=== PATIENT | female | born 1960 | race Caucasian/White ===

== ENCOUNTER 2017-08-31 10:28 | Inpatient (IN) | payer BC, OTHER ==
[~2017-08-31] VITALS: Ht 158.8 cm; Wt 38.6 kg
[2017-08-31] MEDS ORDERED: ATOR20TA PO (15:40)
[2017-08-31] MEDS ORDERED: ASPI-1169 PO (15:40)
[2017-08-31] MEDS ORDERED: FOLI1TAB16 PO (15:40)
[2017-08-31] MEDS ORDERED: DIVA500T7 PO (15:40)
[2017-08-31] MEDS ORDERED: DIVA250T4 PO (15:40)
[2017-08-31] MEDS ORDERED: CITA10TA9 PO (15:40)
[2017-08-31] MEDS ORDERED: HALO1TAB PO (15:40)
[2017-08-31] MEDS ORDERED: PANT40TA4 PO (15:40)
[2017-08-31] MEDS ORDERED: LISI-603 PO (15:40)
--- NOTE | 2017-08-31 15:45 | NUR ---
PRE-ASSESSMENT: Pre-Assessment done at intake office, client is A/O to name, place and situation,s he presents with flat affect, anxious mood. T 98, RR 18, BP 114/64, HR 71, spO2 @ 100% on RA, Pain 0/10. She has unsteady gait, soft, delayed speech, she avoids eye contact. She reports allergies dilaudid. She denies any withdrawal-induced seizure. PMH: insomnia, bipolar d/o, panic attacks, pancreatitis, gastric ulcer, anxiety, HtN Medications taken at home Depakote 250mg PO am and 500mg PO HS Lisinopril 20mg daily Atorvastatin 20mg PO HS Aspirin 81mg PO daily Folic acid 1mg daily Pantoprazole 40mg PO daily Inderal 10mg PO prn TID Trazodone 50mg PO prn qhs Zofran 4mg SL prn Q6H Haloperidol 1mg PO BID Substance history alcohol 500mL PO daily for the past two years. longest period of sobriety 48 hours.
[2017-08-31 16:00] VITALS: BP 114/64
--- NOTE | 2017-08-31 16:00 | NUR ---
Admissions Note 57 year old female admitted to [facility] for withdrawal from alcohol. Client reports PMH of insomnia, bipolar d/o, panic attacks, pancreatitis, gastric ulcer, anxiety, HtN. Client is oriented to unit, educated about protocols and how to work TV and call light in her room. Client is on a 1:1 for safety d/t unsteady gait. Weight: 85 pounds. Height: 5'2.5" CIWA: 4 Client appears anxious, flat affect. Bilateral lung clear on auscultation, abdomen soft, non-tender, no edema noted. Clients voice is soft, delayed, she avoids eye contact. Client has Allergies for Dilaudid. Regular diet ordered. Full code status ordered. Client denies any history of seizures. LBM was 08/31/17, small/brown/soft. Clients PCP Connie Rey, She gives verbal consent for PNA and Influenza vaccine. She gives verbal consent for HIV. Client states that she lives with her fianc and his family. Client substance use is as follow, she first started consuming alcohol 20 years ago, for the last 2 days she has been consuming 500mL of Vodka PO DAILY, last time used 08/28/17 @ 2300 She reports no prior treatments. Her longest period of sobriety is for 48 hrs about two months ago. Dr Randle notified of client admission.. Urine was collected upon admission. All safety measures instituted. [place]ill precaution. Call light within reach. Will continue to monitor.
[2017-08-31] MEDS ORDERED: ONDA4TAB8 PO (17:08)
[2017-08-31] MEDS ORDERED: CITA10TA17 GT (17:08)
[2017-08-31] MEDS ORDERED: PROP40TA7 PO (17:08)
[2017-08-31] MEDS ORDERED: ONDANSETRON ODT 4 MG TAB.RAPDIS SL PRN (17:30)
[2017-08-31] MEDS ORDERED: MAG HYDROX/AL HYDROX/SIMETH 30 ML LIQUID UDC PO PRN (17:30)
[2017-08-31] MEDS ORDERED: LOPERAMIDE HCL 2 MG CAPSULE PO PRN ×2 (17:30)
[2017-08-31] MEDS ORDERED: MAGNESIUM HYDROXIDE 30 ML LIQUID UDC PO PRN (17:30)
[2017-08-31] MEDS ORDERED: LORAZEPAM 1 MG TABLET PO PRN ×2 (17:30)
[2017-08-31] MEDS ORDERED: THIAMINE HCL 200 MG/2 ML VIAL IM ONE (17:30)
[2017-08-31] MEDS ORDERED: LORAZEPAM 2 MG/1 ML VIAL IM PRN (17:30)
[2017-08-31] MEDS ORDERED: MIRALAX 17 GM POWD.PACK PO PRN (17:30)
[2017-08-31] MEDS ORDERED: ONDANSETRON 4 MG/2 ML VIAL IM PRN (17:30)
[2017-08-31] MEDS ORDERED: CLONIDINE HCL 0.1 MG TABLET PO PRN (17:30)
[2017-08-31] MEDS ORDERED: ACETAMINOPHEN 325 MG TABLET PO PRN (17:30)
[2017-08-31] MEDS ORDERED: IBUPROFEN 400 MG TABLET PO PRN (17:30)
[2017-08-31] MEDS ORDERED: DICYCLOMINE HCL 20 MG TABLET PO PRN (17:30)
[2017-08-31] MEDS ORDERED: diphenhydrAMINE 50 MG CAPSULE PO PRN (17:30)
[2017-08-31 17:41] LABS: *URINE HCG, QUAL NEGATIVE (NEGATIVE)
[2017-08-31 17:56] LABS: *AMPHETAMINE, URINE NEGATIVE (NEGATIVE); *BARBITURATE, URINE POSITIVE (NEGATIVE); *CANNABINOID, URINE NEGATIVE (NEGATIVE); *COCCAINE, URINE NEGATIVE (NEGATIVE); *OPIATE, URINE NEGATIVE (NEGATIVE); *PHENCYCLIDINE SCREEN,URINE NEGATIVE (NEGATIVE)
[2017-08-31] MEDS ORDERED: LORAZEPAM 1 MG TABLET PO ONE (18:00)
--- NOTE | 2017-08-31 18:10 | NUR ---
Vitamin B1 Inj IM administered to R buttock, client tolerated well.
--- NOTE | 2017-08-31 19:15 | NUR ---
END OF SHIFT Client is a 57 y/o female, admitted to [facility] for withdrawal from alcohol. She has Lorazepam 1 mg PO q2h PRN CIWA 8-14, Lorazepam 2 mg PO q2h PRN CIWA 15+ and notify MD available for management for withdrawal symptoms. Last CIWA 4 @ 1600. Client is on a 1:1 sitter for safety d/t unsteady gait. She denies a hx of withdrawal-induced seizures, Client reports allergy to Dilaudid, she is full code, regular diet. Side rails x 2 up/padded for seizure precautions. Call light within reach.
--- NOTE | 2017-08-31 19:30 | NUR ---
START OF SHIFT Client is a 57 y/o female, admitted to [facility] for withdrawal from alcohol. She has Lorazepam 1 mg PO q2h PRN CIWA 8-14, Lorazepam 2 mg PO q2h PRN CIWA 15+ and notify MD available for management for withdrawal symptoms. Last CIWA 4 @ 1600. Client is on a 1:1 sitter for safety d/t unsteady gait. She denies a hx of withdrawal-induced seizures, Client reports allergy to Dilaudid, she is full code, regular diet. Side rails x 2 up/padded for seizure precautions. Call light within reach. Addendum: 08/31/17 at 6175 by ISIDRO GREENE RN ERROR
--- NOTE | 2017-08-31 19:45 | NUR ---
START OF SHIFT PT IS 57 Y/O FEMALE ADMITTED FOR ETOH DEPENDENCY.PT IS A/O X 2,HAS BEEN PLACED ON 1:1 CLOSE OBSERVATION WITH A FEMALE STAFF FOR UNSTEADY GAIT.BREATHING IS EVEN AND NON LABORED,SKIN IS INTACT,WARM AND DRY TO TOUCH.NO HX OF SEIZURES NOTED.LAST CIWA WAS 4.NO C/O PAIN OR S/S OF ACUTE DISTRESS NOTED.ALL SAFETY MEASURES IN PLACE PER HOSPITAL POLICY,SITTER IS AT BEDSIDE.WILL CONTINUE TO MONITOR FOR SAFETY.
[2017-08-31 19:46] LABS: ALANINE AMINOTRANSFERASE 62 U/L (14-59); ALKALINE PHOSPHATASE 137 U/L (50-136); AMYLASE 160 U/L (25-115); ASPARTATE AMINOTRANSFERASE 77 U/L (15-37); BILIRUBIN,TOTAL 0.2 mg/dL (0.2-1.0); CARBON DIOXIDE 29 mmol/L (21-32); CHLORIDE 100 mmol/L (98-107); CREATININE 0.8 mg/dL (0.6-1.3); GLUCOSE 126 mg/dL (74-106); MAGNESIUM 1.5 mg/dL (1.8-2.4); POTASSIUM 3.6 mmol/L (3.5-5.1); TOTAL PROTEIN, SERUM 8.2 g/dL (6.4-8.2); UREA NITROGEN, BLOOD 7 mg/dL (7-18)
[2017-08-31 19:54] LABS: BASOPHILS # (AUTO) 0.1 K/uL (0.0-8.0); BASOPHILS % (AUTO) 1.4 % (0.0-2.0); EOSINOPHILS # (AUTO) 0.2 K/uL (0.0-0.7); HEMATOCRIT 32.6 % (37-47); HEMOGLOBIN 10.7 G/DL (12.0-16.0); LYMPHOCYTES # (AUTO) 1.4 K/UL (0.8-4.8); LYMPHOCYTES % (AUTO) 25.1 % (20.5-51.5); MEAN CORPUSCULAR HEMOGLOBIN 35.8 UUG (27.0-31.0); MEAN CORPUSCULAR HGB CONC 33 g/dL (32.0-37.0); MEAN CORPUSCULAR VOLUME 109.5 FL (81.0-99.0); MONOCYTES # (AUTO) 0.9 K/UL (0.1-1.30); MONOCYTES % (AUTO) 16.7 % (0.0-11.0); NEUTROPHILS # (AUTO) 2.9 K/UL (1.8-8.9); NEUTROPHILS % (AUTO) 52.8 % (38.5-71.5); PLATELET COUNT (AUTO) 539 K/UL (150-450); RED BLOOD CELL COUNT(AUTO) 2.98 MIL/UL (4.2-5.4); WHITE BLOOD COUNT (AUTO) 5.5 K/UL (4.0-11.2)
[2017-08-31 20:00] VITALS: BP 140/82
[2017-08-31 20:08] LABS: ETHANOL < 3 MG/DL (0-0)
[2017-08-31] MEDS: ATORVASTATIN 20 MG PO SCH (20:42)
[2017-08-31 20:49] LABS: NEUTROPHILS % (MANUAL) 51 % (42-75)
[2017-08-31 20:50] LABS: BAND % (MANUAL) 7 % (0-10); EOSINOPHILS % (MANUAL) 3 % (0-8); LYMPHOCYTES % (MANUAL) 24 % (20-40); MONOCYTES % (MANUAL) 15 % (2-10)
--- NOTE | 2017-08-31 20:50 | NUR ---
LOW LEVEL OF MAGNESIUM REPLACED PER ORDER.
[2017-08-31] MEDS ORDERED: MAGNESIUM OXIDE 400 MG TABLET PO ONE (21:00)
[2017-08-31] MEDS ORDERED: LORAZEPAM 1 MG TABLET PO SCH (21:00)
[2017-08-31] MEDS: DIVALPROEX 500 MG TABLET.DR PO SCH (21:24)
[2017-08-31] MEDS: HALOPERIDOL 1 MG TABLET PO SCH (21:24)
[2017-09-01] VITALS: BP 143/79
[2017-09-01 04:00] VITALS: BP 138/73
--- NOTE | 2017-09-01 06:36 | NUR ---
END OF SHIFT PT IS 57 Y/O FEMALE ADMITTED FOR ETOH DEPENDENCY.PT IS A/O X 2, REMAINS ON 1:1 CLOSE OBSERVATION WITH A FEMALE STAFF FOR UNSTEADY GAIT. BREATHING IS EVEN AND NON LABORED, SKIN IS INTACT, WARM AND DRY TO TOUCH. NO HX OF SEIZURES NOTED. PT IS MED COMPLIANT.LAST CIWA WAS 2.NO C/O PAIN OR S/S OF ACUTE DISTRESS NOTED. NO PRN MEDS GIVEN. PT SLEPT 7 HRS,FLUID INTAKE WAS 1008 MLS,VOIDED X 5, STOOL X 1. ALL SAFETY MEASURES IN PLACE PER HOSPITAL POLICY, SITTER IS AT BEDSIDE. WILL CONTINUE TO MONITOR FOR SAFETY.
--- NOTE | 2017-09-01 07:45 | NUR ---
START OF SHIFT Client is a 57 y/o female, admitted to [facility] for withdrawal from alcohol . She is on a modified 2 day Ativan taper, tolerating well. Last CIWA 2 @ 0200. Client is on a 1:1 for unsteady gait. Client had an uneventful night. Client slept 7 hrs. She denies a hx of withdrawal-induced seizures, Client reports NKA, she is full code, regular diet. Side rails x 2 up/padded for seizure precautions. Call light within reach.
[2017-09-01 08:55] VITALS: BP 109/68
[2017-09-01] MEDS ORDERED: TUBERCULIN,PURIF.PROT.DERIV. 5 TU/0.1 ML TEST ID ONE (09:00)
[2017-09-01] MEDS: MULTIVITAMINS,THERAPEUTIC TABLET PO SCH (09:30)
[2017-09-01] MEDS: THIAMINE HCL 100 MG TABLET PO SCH (09:30)
[2017-09-01] MEDS: DIVALPROEX 250 MG TABLET.DR PO SCH (09:31)
[2017-09-01] MEDS: LISINOPRIL 20MG PO SCH (09:31)
[2017-09-01] MEDS: LORAZEPAM 1 MG TABLET PO SCH ×3 (09:31→20:40)
[2017-09-01] MEDS: ASPIRIN 81 MG PO SCH (09:31)
[2017-09-01] MEDS: PANTOPRAZOLE 40MG PO SCH (09:31)
[2017-09-01] MEDS: HALOPERIDOL 1 MG TABLET PO SCH ×2 (09:31→17:42)
--- NOTE | 2017-09-01 09:32 | NUR ---
TB test administered to L forearm, client tolerated well.
[2017-09-01] MEDS: FOLIC ACID 1 MG TABLET PO SCH (09:42)
[2017-09-01] MEDS ORDERED: DIVALPROEX 250 MG TABLET.DR PO SCH (12:30)
[2017-09-01] MEDS ORDERED: HALOPERIDOL 1 MG TABLET PO SCH (12:30)
[2017-09-01 12:55] VITALS: BP 112/70
--- NOTE | 2017-09-01 13:00 | NUR ---
PT evaluated client, and stated "Client is unsteady." PT recommends 1:1 as safety measures to prevent a fall."
[2017-09-01] MEDS: CITALOPRAM 10 MG TABLET PO SCH (13:14)
[2017-09-01 16:55] VITALS: BP 105/54
--- NOTE | 2017-09-01 19:34 | NUR ---
END OF SHIFT Client is a 57 y/o female, admitted to [facility] for withdrawal from alcohol . She is on a modified 2 day Ativan taper, tolerating well. Last CIWA 6 @ 1600. Client is on a 1:1 for unsteady gait. Client was not compliant with group therapy, encouragement needed. Client consumes 25-50 % of meals, adequate PO fluid intake 947mL, void x 3, stool x 2. She denies a hx of withdrawal-induced seizures, Client reports NKA, she is full code, regular diet. Side rails x 2 up/padded for seizure precautions. Call light within reach.
[2017-09-01] MEDS ORDERED: LORAZEPAM 1 MG TABLET PO PRN ×2 (19:45)
[2017-09-01 20:00] VITALS: BP 108/72
--- NOTE | 2017-09-01 20:00 | NUR ---
Start of Shift Pt is a 57 year old female admitted for ETOH dependence, placed on a modified Ativan taper. Pt reported consuming Vodka 1 pint/daily. PMH: Bipolar disorder, panic attacks, gastric ulcer and hx of pancreatitis. Pt reports allergies to hydromorphone, fall/seizure precautions, regular diet and full code. Upon assessment, pt reports feeling anxious, hot/cold with chills throughout body, pt reports feeling dizziness, tremors visible, skin flushed/clammy, respirations even/unlabored, denies SOB/chest pain, denies n/v/d, medications due. Pt is on 1:1 due to safety/unsteady gait. Safety measures in place, call light within reach, side rails up x2, bed locked and in low position. Will continue to monitor.
[2017-09-01] MEDS: ATORVASTATIN 20 MG PO SCH (20:41)
[2017-09-01] MEDS: DIVALPROEX 500 MG TABLET.DR PO SCH (20:41)
[2017-09-01] MEDS ORDERED: DIVALPROEX 500 MG TABLET.DR PO SCH (21:00)
[2017-09-02] VITALS: BP 122/79
[2017-09-02 04:00] VITALS: BP 97/64
--- NOTE | 2017-09-02 04:00 | NUR ---
ANITAWA deferred d/t pt sleeping, to assess while pt is awake as ordered. BP 97/64, pulse 73, resp 18, SpO2 99% room air, temp 98, no pain 0/[address], will continue to monitor.
--- NOTE | 2017-09-02 07:00 | NUR ---
End of Shift Pt is a 57 year old female admitted for ETOH dependence, placed on a modified Ativan taper. Pt reported consuming Vodka 1 pint/daily. PMH: Bipolar disorder, panic attacks, gastric ulcer and hx of pancreatitis. Pt reports allergies to hydromorphone, fall/seizure precautions, regular diet and full code. During shift, pt reported feeling anxious, hot/cold with chills throughout body, pt reported feeling dizziness, tremors visible, skin flushed/clammy - scheduled taper medications administered, latest CIWA 7. No PRNs administered during shift. Pt slept for 8 hours, intake of 355 ml PO, voids x5 and stool x2. Safety measures in place, call light within reach, side rails up x2, bed locked and in low position. Endorsed to day shift nurse.
[2017-09-02 07:06] LABS: HEPATITIS B SURFACE AG Negative (Negative)
--- NOTE | 2017-09-02 07:30 | NUR ---
START OF SHIFT Rcvd endorsement from ongoing nurse, client is in room, she is a/o x name, place, situation, she presents with depressed mood, flat affect. She reports decreased appetite, restless legs, and fatigue. She denies any N/V/D. She denies any SI/HI. Encourage client to attend to group therapy for skills to maintain sober. Encourage client to increase PO fluid intake as tolerated to facilitate detox. Client is a 57 y/o female, admitted to [facility] for withdrawal from alcohol. She is on a modified 2 day Ativan taper, tolerating well. Last CIWA 7 @ 2400. Client is on a 1:1 for unsteady gait. Client had an uneventful night. Client slept 8 hrs. She denies a hx of withdrawal-induced seizures, Client reports NKA, she is full code, regular diet. Side rails x 2 up/padded for seizure precautions. Call light within reach.
[2017-09-02 08:00] VITALS: BP 115/71
[2017-09-02 09:02] LABS: BILIRUBIN,DIRECT 0.1 mg/dL (0.0-0.2); BILIRUBIN,TOTAL 0.2 mg/dL (0.2-1.0); CREATININE 0.7 mg/dL (0.6-1.3); MAGNESIUM 1.7 mg/dL (1.8-2.4); POTASSIUM 4.2 mmol/L (3.5-5.1); TOTAL PROTEIN, SERUM 7.3 g/dL (6.4-8.2)
[2017-09-02] MEDS: MULTIVITAMINS,THERAPEUTIC TABLET PO SCH (09:46)
[2017-09-02] MEDS: THIAMINE HCL 100 MG TABLET PO SCH (09:46)
[2017-09-02] MEDS: LORAZEPAM 1 MG TABLET PO SCH ×2 (09:46→20:00)
[2017-09-02] MEDS: DIVALPROEX 250 MG TABLET.DR PO SCH (09:46)
[2017-09-02] MEDS: FOLIC ACID 1 MG TABLET PO SCH (09:46)
[2017-09-02] MEDS: ASPIRIN 81 MG PO SCH (09:46)
[2017-09-02] MEDS: CITALOPRAM 10 MG TABLET PO SCH (09:46)
[2017-09-02] MEDS: LISINOPRIL 20MG PO SCH (09:46)
[2017-09-02] MEDS: HALOPERIDOL 1 MG TABLET PO SCH ×2 (09:46→16:30)
[2017-09-02] MEDS: PANTOPRAZOLE 40MG PO SCH (09:47)
[2017-09-02 12:55] VITALS: BP 112/57
--- NOTE | 2017-09-02 14:33 | NUR ---
Client was prompted to attend daily group sessions, and stated that she would attend the next group.
--- NOTE | 2017-09-02 14:55 | NUR ---
NO MRSA ISOLATED
[2017-09-02] MEDS ORDERED: MAGNESIUM OXIDE 400 MG TABLET PO ONE (15:00)
--- NOTE | 2017-09-02 15:00 | NUR ---
Magnesium 1.7. Replaced with Mag Ox 800mg PO, client tolerated well.
[2017-09-02 16:00] VITALS: BP 102/66
--- NOTE | 2017-09-02 19:27 | NUR ---
END OF SHIFT Client is a 57 y/o female, admitted to [facility] for withdrawal from alcohol . She is on a modified 2 day Ativan taper, tolerating well. Last CIWA 6 @ 1600.Client is a/o to name, place, situation. Client is on a 1:1 for unsteady gait. Client was not compliant with group therapy, encouragement needed. Client consumes 50-75 % of meals, adequate PO fluid intake 1582mL, void x 2, stool x 1. She denies a hx of withdrawal-induced seizures, Client reports NKA, she is full code, regular diet. Side rails x 2 up/padded for seizure precautions. Call light within reach.
[2017-09-02 20:00] VITALS: BP 113/64
[2017-09-02] MEDS: ATORVASTATIN 20 MG PO SCH (20:00)
[2017-09-02] MEDS: DIVALPROEX 500 MG TABLET.DR PO SCH (20:00)
--- NOTE | 2017-09-02 20:00 | NUR ---
Start of Shift Pt is a 57 year old female admitted for ETOH dependence, placed on a modified Ativan taper. Pt reported consuming Vodka 1 pint/daily. PMH: Bipolar disorder, panic attacks, gastric ulcer and hx of pancreatitis. Pt reports allergies to hydromorphone, fall/seizure precautions, regular diet and full code. Upon assessment, pt reports feeling anxious, pt reports feeling dizziness, fine tremors visible, skin flushed/clammy, respirations even/unlabored, denies SOB/chest pain, denies n/v/d, medications due. Pt is on 1:1 due to safety/unsteady gait. Safety measures in place, call light within reach, side rails up x2, bed locked and in low position. Will continue to monitor.
--- NOTE | 2017-09-02 22:23 | NUR ---
PRN Administration Pt requests aid for sleep. Benadryl 50mg PRN administered. Safety measures in place, will continue to monitor.
--- NOTE | 2017-09-02 23:23 | NUR ---
PRN Reassessment Upon reassessment, pt is in bed, resting with eyes closed, respirations even/unlabored. Safety measures in place, will continue to monitor.
[2017-09-03] VITALS: BP 115/60
--- NOTE | 2017-09-03 | NUR ---
CIWA deferred d/t pt sleeping, to assess while pt is awake as ordered. BP 115/60, pulse 80, resp 16, SpO2 98% room air, temp 98.9, no pain 0/[address], will continue to monitor.
[2017-09-03 04:00] VITALS: BP 119/79
--- NOTE | 2017-09-03 07:00 | NUR ---
End of Shift Pt is a 57 year old female admitted for ETOH dependence, placed on a modified Ativan taper. Pt reported consuming Vodka 1 pint/daily. PMH: Bipolar disorder, panic attacks, gastric ulcer and hx of pancreatitis. Pt reports allergies to hydromorphone, fall/seizure precautions, regular diet and full code. During shift, pt reported feeling anxious, pt reported feeling dizziness, fine tremors visible, skin flushed/clammy scheduled taper medications administered, CIWA 6. Benadryl 50mg PRN administered, effective. Pt slept for 1 hour, Intake of 1005m, voids x7 and stool x1. Pt is on 1:1 due to safety/unsteady gait. Safety measures in place, call light within reach, side rails up x2, bed locked and in low position. Endorsed to day shift nurse.
--- NOTE | 2017-09-03 07:30 | NUR ---
START OF SHIFT Pt 57 y/o female admitted for withdrawal from etoh. Pt alert and oriented. Perrla. Skin warm and dry to touch. Respirations even and unlabored. Bilateral hand tremors noted. It was reported that pt did not sleep last night. Pt clarified that she was not able to sleep last night. Pt with 1:1 to monitor for safety. Pt is scheduled to be seen by PT this morning. Bed on lowest position with side rails x2 up for safety. Call light within reach. No distress noted at this time.
[2017-09-03 08:00] VITALS: BP 128/82
[2017-09-03] MEDS ORDERED: LORAZEPAM 1 MG TABLET PO SCH (09:00)
[2017-09-03] MEDS: ASPIRIN 81 MG PO SCH (09:30)
[2017-09-03] MEDS: PANTOPRAZOLE 40MG PO SCH (09:30)
[2017-09-03] MEDS: LISINOPRIL 20MG PO SCH (09:30)
[2017-09-03] MEDS: CITALOPRAM 10 MG TABLET PO SCH (09:31)
[2017-09-03] MEDS: THIAMINE HCL 100 MG TABLET PO SCH (09:31)
[2017-09-03] MEDS: FOLIC ACID 1 MG TABLET PO SCH (09:31)
[2017-09-03] MEDS: HALOPERIDOL 1 MG TABLET PO SCH (09:31)
[2017-09-03] MEDS: DIVALPROEX 250 MG TABLET.DR PO SCH (09:31)
[2017-09-03] MEDS: MULTIVITAMINS,THERAPEUTIC TABLET PO SCH (09:31)
[2017-09-03 12:00] VITALS: BP 126/78
[2017-09-03 16:00] VITALS: BP 110/67
[2017-09-03] MEDS: HALOPERIDOL 2 MG TABLET PO SCH (16:49)
[2017-09-03] MEDS ORDERED: LORAZEPAM 1 MG TABLET PO PRN ×2 (17:00)
[2017-09-03] MEDS ORDERED: HALOPERIDOL 1 MG TABLET PO SCH (17:00)
--- NOTE | 2017-09-03 17:00 | NUR ---
NSG ENTRY Sitter with pt stated pt said she saw bunnies outside on the patio. Dr. Majano made aware with new orders to hold scheduled discharge tomorrow until further evaluation. Dr. Randle made aware. Pt remains on 1:1 to monitor for safety.
--- NOTE | 2017-09-03 18:09 | NUR ---
END OF SHIFT Pt 57 y/o female admitted for withdrawal from etoh. Pt alert and oriented to name, place, and time. Perrla. Skin warm and slightly moist to touch. Respirations even and unlabored. Bilateral hand tremors noted. Pt with 1:1 sitter for safety. Pt was seen by PT today. Pt observed mostly isolative to room throughout the day. Pt did not attend group activity. Pt was seen by MD today. Pt medication compliant and tolerated well. No ASE noted. Pt is scheduled to be discharged. Bed on lowest position with side rails x2 up for safety. Call light within reach. No distress noted at this time.
[2017-09-03 20:00] VITALS: BP 101/53
--- NOTE | 2017-09-03 20:00 | NUR ---
Start of Shift Pt is a 57 year old female admitted for ETOH dependence, placed on a modified Ativan taper. Pt reported consuming Vodka 1 pint/daily. PMH: Bipolar disorder, panic attacks, gastric ulcer and hx of pancreatitis. Pt reports allergies to hydromorphone, fall/seizure precautions, regular diet and full code. Upon assessment, pt reports feeling achey pt reports feeling dizziness, fine tremors visible, respirations even/unlabored, denies SOB/chest pain, denies n/v/d, medications due. Pt is on 1:1 due to safety/unsteady gait. Safety measures in place, call light within reach, side rails up x2, bed locked and in low position. Will continue to monitor.
[2017-09-03] MEDS: DIVALPROEX 500 MG TABLET.DR PO SCH (20:26)
[2017-09-03] MEDS: ATORVASTATIN 20 MG PO SCH (20:26)
[2017-09-03] MEDS ORDERED: LORAZEPAM 1 MG TABLET PO ONE (21:00)
[2017-09-04] VITALS: BP 98/58
--- NOTE | 2017-09-04 | NUR ---
CIWA deferred d/t pt sleeping, to assess while pt is awake as ordered. BP 98/58, pulse 78, resp 16, SpO2 100% room air, temp 98.2, no pain 0/[address], will continue to monitor.
[2017-09-04 04:00] VITALS: BP 102/69
--- NOTE | 2017-09-04 04:00 | NUR ---
ANITAWA deferred d/t pt sleeping, to assess while pt is awake as ordered. BP 102/69, pulse 80, resp 17, SpO2 99% room air, temp 98 no pain 0/[address], will continue to monitor.
--- NOTE | 2017-09-04 07:00 | NUR ---
End of Shift Pt is a 57 year old female admitted for ETOH dependence, placed on a modified Ativan taper. Pt reported consuming Vodka 1 pint/daily. PMH: Bipolar disorder, panic attacks, gastric ulcer and hx of pancreatitis. Pt reports allergies to hydromorphone, fall/seizure precautions, regular diet and full code. During shift, pt reported feeling "achey" pt reports feeling dizziness, fine tremors visible scheduled taper medications administered, CIWA 8. No PRN medications administered during shift. Pt slept for 6 hours, intake of 500 ml PO, voids x5 and stool x1. Pt is on 1:1 due to safety/unsteady gait. Safety measures in place, call light within reach, side rails up x2, bed locked and in low position. Endorsed to day shift nurse.
--- NOTE | 2017-09-04 07:30 | NUR ---
START OF SHIFT Pt is a 57 y/o F, admitted for alcohol dependence. PMH of bipolar disorder, panic attacks, gastric ulcer, pancreatitis. Pt is full code, on reg diet. Pt is A/O x4, recieved pt sitting in bed, flat affect. Unlabored and even respirations, skin dry and intact, no complaints of chills/sweats. Ativan taper completed, awaiting eval psychiatrist in regards to discharge r/t to Pt with episodes of A/V hallucinations. Side rails up x2, call light within reach, fall and SZ precaution taken. Pt on due to unsteady gait. will continue to monitor.
[2017-09-04 08:00] VITALS: BP 127/76
[2017-09-04] MEDS: FOLIC ACID 1 MG TABLET PO SCH (09:04)
[2017-09-04] MEDS: CITALOPRAM 10 MG TABLET PO SCH (09:04)
[2017-09-04] MEDS: THIAMINE HCL 100 MG TABLET PO SCH (09:04)
[2017-09-04] MEDS: MULTIVITAMINS,THERAPEUTIC TABLET PO SCH (09:04)
[2017-09-04] MEDS: HALOPERIDOL 2 MG TABLET PO SCH (09:04)
[2017-09-04] MEDS: PANTOPRAZOLE 40MG PO SCH (09:05)
[2017-09-04] MEDS: ASPIRIN 81 MG PO SCH (09:05)
[2017-09-04] MEDS: DIVALPROEX 250 MG TABLET.DR PO SCH (09:05)
[2017-09-04] MEDS: LISINOPRIL 20MG PO SCH (09:06)
[2017-09-04 12:00] VITALS: BP 111/68
[2017-09-04 16:00] VITALS: BP 100/65
[2017-09-04] MEDS ORDERED: HALOPERIDOL 2 MG TABLET PO SCH (17:00)
[2017-09-04] MEDS ORDERED: ASPI-1169 PO (18:10)
[2017-09-04] MEDS ORDERED: ONDA4TAB11 SL (18:10)
[2017-09-04] MEDS ORDERED: DIVA250T4 PO (18:10)
[2017-09-04] MEDS ORDERED: LISI-603 PO (18:10)
[2017-09-04] MEDS ORDERED: DIVA500T2 PO (18:10)
[2017-09-04] MEDS ORDERED: DIPH50CA37 PO (18:10)
[2017-09-04] MEDS ORDERED: ATOR20TA PO (18:10)
[2017-09-04] MEDS ORDERED: HALO5TAB12 PO (18:10)
[2017-09-04] MEDS: HALOPERIDOL 5 MG TABLET PO SCH (18:24)
--- NOTE | 2017-09-04 19:02 | NUR ---
START OF SHIFT Pt is a 57 y/o F, admitted for alcohol dependence. PMH of bipolar disorder, panic attacks, gastric ulcer, pancreatitis. Pt is full code, on reg diet. Pt is A/O x4, pt up in bed and having dinner at this time. Unlabored and even respirations, skin dry and intact, no complaints of chills/sweats. Ativan taper completed, awaiting eval psychiatrist in regards to discharge r/t to Pt with episodes of A/V hallucinations. Last CIWA 1 at 1600. Pt did not request and PRN meds. Pt VS within normal limits. No complaints of N/V or diarrhea. Pts abdomen soft and nondistended. Side rails up x2, call light within reach, fall and SZ precaution taken. Pt on due to unsteady gait. All pertinent discussed with night nurse. Endorsement given to night nurse. Addendum: 09/04/17 at 1910 by RAMÓN JOYA RN END OF SHIFT REPORT
--- NOTE | 2017-09-04 19:10 | NUR ---
Start of shift note Received report from day shift nurse. Pt is a 57 yo female, A+Ox4, presenting to [facility] for ETOH dependence. Pt has allergies to Dilaudid, is on Full code status, and on Regular diet. Pt is on Fall and Seizure precautions. Pt has HX of Bipoalr, panic disorder, pancreatitis, and gastric ulcer. Pt has completed 2 day Ativan taper, tolerated well, and is due for discharge tomorrow. No s/s of distress noted at this time. Respirations even and unlabored. Will continue to monitor.
[2017-09-04] MEDS: ATORVASTATIN 20 MG PO SCH (20:36)
[2017-09-04] MEDS: DIVALPROEX 500 MG TABLET.DR PO SCH (20:36)
[2017-09-04 20:39] VITALS: BP 100/63
[2017-09-05 00:38] VITALS: BP 108/65
[2017-09-05 04:09] VITALS: BP 105/61
--- NOTE | 2017-09-05 06:51 | NUR ---
End of shift note Pt is a 57 yo female, A+Ox4, presenting to [facility] for ETOH dependence. Pt has allergies to Dilaudid, is on Full code status, and on Regular diet. Pt is on Fall and Seizure precautions. Pt has HX of Bipolar, panic disorder, pancreatitis, and gastric ulcer. Pt is on 1:1 sitter. Pt has completed 2 day Ativan taper, tolerated well, and is due for discharge today. Pt slept for a total of 8 HRS. Last CIWA: 1 @0400. No s/s of distress noted at this time. Respirations even and unlabored. Will endorse to day shift nurse.
--- NOTE | 2017-09-05 07:30 | NUR ---
start of shift note: received pt from warehouse worker 2nd shift nurse, pt is in stable condition no s/s of pain, discomfort. pt is admitted to [facility] for ETOH withdrawal/dependence. pt's last ciwa is 1. pt is set to discharge today. will assist pt in discharging and will continue to monitor pt for any changes
[2017-09-05] MEDS: HALOPERIDOL 5 MG TABLET PO SCH (08:37)
[2017-09-05] MEDS: MULTIVITAMINS,THERAPEUTIC TABLET PO SCH (08:37)
[2017-09-05] MEDS: FOLIC ACID 1 MG TABLET PO SCH (08:37)
[2017-09-05] MEDS: CITALOPRAM 10 MG TABLET PO SCH (08:37)
[2017-09-05] MEDS: ASPIRIN 81 MG PO SCH (08:38)
[2017-09-05] MEDS: LISINOPRIL 20MG PO SCH (08:38)
[2017-09-05] MEDS: PANTOPRAZOLE 40MG PO SCH (08:38)
[2017-09-05] MEDS: THIAMINE HCL 100 MG TABLET PO SCH (08:39)
[2017-09-05] MEDS: DIVALPROEX 250 MG TABLET.DR PO SCH (08:39)
--- NOTE | 2017-09-05 09:00 | NUR ---
discharge note: pt left the unit in stable condition no s/s of pain or discomfort or any withdrawal symptoms. pt teaching administered and pt verbalized understanding. pt's V/S WNL. Pt will be transferred to [facility] via private car
== END 2017-09-05 09:00 | disposition other institution (70) | DRG 895 ==
LOC: SRC 14:36
PROVIDERS: ADMIT Internal Medicine; ATTEND Internal Medicine
PROC: HZ2ZZZZ Detoxification Services for Substance Abuse Treatment (ICD-10-PCS; principal; 2017-08-31)
PROC: HZ31ZZZ Individual Counseling for Substance Abuse Treatment, Behavioral (ICD-10-PCS; 2017-09-02)
DX: F10.230 Alcohol dependence with withdrawal, uncomplicated (principal); K85.20 Alcohol induced acute pancreatitis without necrosis or infection; F31.64 Bipolar disorder, current episode mixed, severe, with psychotic features; E83.42 Hypomagnesemia; I15.9 Secondary hypertension, unspecified; K70.10 Alcoholic hepatitis without ascites; F41.0 Panic disorder [episodic paroxysmal anxiety]; Y90.0 Blood alcohol level of less than 20 mg/100 ml; R73.9 Hyperglycemia, unspecified; Z81.1 Family history of alcohol abuse and dependence; Z80.1 Family history of malignant neoplasm of trachea, bronchus and lung; Z80.0 Family history of malignant neoplasm of digestive organs; Z80.3 Family history of malignant neoplasm of breast; Z82.49 Family history of ischemic heart disease and other diseases of the circulatory system; F17.210 Nicotine dependence, cigarettes, uncomplicated; K27.7 Chronic peptic ulcer, site unspecified, without hemorrhage or perforation; E78.5 Hyperlipidemia, unspecified; Z81.8 Family history of other mental and behavioral disorders; Z79.899 Other long term (current) drug therapy; D53.9 Nutritional anemia, unspecified; R26.81 Unsteadiness on feet
CPT/HCPCS: 36415; 80307; 80345; 80346; 82746; 83735; 84703; 85025; 86580; 86592; 86705; 86803; 87340; 87806; 97116; 97530; A4663; G0480; J3411; J3490; Q0163